=== PATIENT | male | born 1960 | race African-American/Black ===

== ENCOUNTER 2021-08-30 19:18 | Emergency (ER) | payer OTHER, SELFPAY ==
[2021-08-30] MEDS ORDERED: Sodium Bicarb 50 MEQ/50 ML Abboject 8.4% SYRINGE ONE (19:26)
[2021-08-30] MEDS ORDERED: Amiodarone 150 MG/3 ML VIAL ONE (19:26)
[2021-08-30] MEDS ORDERED: EPINEPHrine 1 MG/10 ML Abboject SYRINGE ONE (19:26)
[2021-08-30] MEDS ORDERED: Esmolol 2,500 MG/250 ML 250 ML ONE (19:29)
[2021-08-30] MEDS ORDERED: Magnesium 2 GM/50 ML BAG (IN WATER) ONE (19:37)
[2021-08-30] MEDS ORDERED: Amiodarone 450 MG, Admixture Fee 1 EACH in Dextrose 5% in Water 250 ML IVPB SCH (19:45)
[2021-08-30] MEDS ORDERED: Lidocaine 2% PF 100 mg/5 ml Syringe ONE (19:51)
[2021-08-30] MEDS ORDERED: ALTEPLASE (TPA) 50 MG/50 ML VIAL ONE ×2 (19:54→19:55)
[2021-08-30 19:59] LABS: Hemoglobin 15.1 g/dL (14.0-18.0); Mean Corpuscular HGB CONC 31.4 g/dL (32.0-36.0); Mean Corpuscular Volume 92.2 fL (78.0-98.0); Mean Platelet Volume 7.3 fL (7.4-10.4); Platelet Count 233 thou/uL (130-400); RBC Distribution Width 13.2 % (11.5-14.5); Red Blood Cell (RBC) Count 5.21 mill/uL (4.70-6.10); White Blood Cell (WBC) Count 13.1 thou/uL (4.8-10.8)
[2021-08-30 20:05] LABS: ALT (SGPT) 57 U/L (8-55); AST (SGOT) 48 U/L (5-34); Albumin 3.7 g/dL (3.4-4.8); Alkaline Phosphatase 84 U/L (40-110); Anion Gap 25 mmol/L (10-20); BUN (Urea Nitrogen) 22 mg/dL (8.4-25.7); Bilirubin, Total 0.3 mg/dL (0.2-1.2); Calc. Creatinine Clearance 0 mL/min (70-130); Carbon Dioxide 21 mmol/L (23-31); Chloride 97 mmol/L (98-107); Globulin 2.8 g/dL (2.4-3.5); Glucose 302 mg/dL (80-115); Potassium 3.5 mmol/L (3.5-5.1); Protein, Total 6.5 g/dL (5.8-8.1); Sodium 139 mmol/L (136-145)
[2021-08-30 21:14] LABS: Band 2 % (5-11); Eosinophils 1 % (0-10); Lymphocytes 48 % (21-51); MDiff Complete? YES; Monocytes 8 % (0-10); Myelocyte 1 % (0-0); Neutrophil 36 % (42-75); Nucleated RBC 2 % (0); Reactive Lymphocytes 4 % (0-10)
== END 2021-08-30 20:07 | disposition expired ==
LOC: ERS 19:18
DX: I46.9 Cardiac arrest, cause unspecified (principal); I49.01 Ventricular fibrillation
CPT/HCPCS: 36416; 36556; 80053; 83605; 84484; 85025; 85730; 96374; 96375; 96376; J0171; J0282; J2001; J2997; J3475; J7070